=== PATIENT | male | born 1965 | race Two or more races ===

== ENCOUNTER 2023-02-12 20:25 | Emergency (ER) | payer SELFPAY ==
[2023-02-12 20:33] VITALS: TEMP 97.9; BMI 28.1
[2023-02-12] MEDS ORDERED: ASPIRIN 81 MG CHEWABLE TABLETS PO ONE (20:57)
[2023-02-12] MEDS ORDERED: ASPIRIN 81 MG CHEWABLE TABLETS ONE (21:05)
[2023-02-12 21:41] LABS: INR 1.07 (0.83-1.09); PROTHROMBIN TIME (PATIENT) 12.4 SEC (9.7-13.0)
[2023-02-12 21:43] LABS: ACTIVATED PTT 27.5 SECONDS (25.2-36.5)
[2023-02-12 21:50] LABS: POTASSIUM 3.9 mmol/L (3.5-5.1)
[2023-02-12 21:52] LABS: CALCIUM 8.7 mg/dL (8.5-10.1)
[2023-02-12 21:53] LABS: ALBUMIN 3.4 g/dl (3.4-5.0); BLOOD UREA NITROGEN 13.3 mg/dL (7-18); MAGNESIUM 2.1 mg/dL (1.8-2.4)
[2023-02-12 21:56] LABS: CREATININE 0.9 mg/dL (0.55-1.3); PHOSPHOROUS 2.6 mg/dL (2.5-4.9)
[2023-02-12 21:57] LABS: TOT PROT 6.1 g/dl (6.4-8.2)
[2023-02-12 21:58] LABS: BILIRUBIN,TOTAL 0.5 mg/dL (0.2-1)
[2023-02-12 22:01] LABS: BASO % 0.5 % (0-2.0); EOS % 3.4 % (0-4.5); LYMPH % 29.6 % (8-40); MCH 29.8 pg (25.7-33.7); MCHC 33.5 g/dl (32.0-35.9); MEAN CELL VOLUME 89.2 fl (80-96); MEAN PLT VOLUME 9.9 fl (7.5-11.1); MONO % 7.7 % (3.8-10.2); NEUT % 58.8 % (42.8-82.8); PLATELET COUNT 144 10^3/uL (134-434); RBC 4.03 M/mm3 (4.00-5.60); RDW 13.9 % (11.9-15.9); WHITE BLOOD COUNT 6.7 K/mm3 (4.0-10.0)
[2023-02-12] MEDS ORDERED: HEPARIN NA (PORCINE) 5,000 UNITS/ML 1ML VIAL IVPUSH ONE (22:15)
[2023-02-12] MEDS ORDERED: HEPARIN NA (PORCINE) 5,000 UNITS/ML 1ML VIAL IVPUSH PRN ×2 (22:17)
[2023-02-12] MEDS ORDERED: HEPARIN INFUSION - 25,000 UNITS/500 ML INFUS.BAG IVPB ONE (22:30)
[2023-02-12] MEDS ORDERED: HEPARIN NA (PORCINE) 5,000 UNITS/ML 1ML VIAL ONE (22:30)
[2023-02-12 23:14] VITALS: BP 126/79; PULSE 60; RESP 18
[2023-02-12] MEDS ORDERED: HEPARIN - 25,000 UNIT in SODIUM CHLORIDE 495 ML IV SCH (23:30)
== END 2023-02-13 00:42 | disposition short-term general hospital (02) ==
LOC: JER 20:25
PROC: 3E033NZ Introduction of Analgesics, Hypnotics, Sedatives into Peripheral Vein, Percutaneous Approach (ICD-10-PCS; principal; 2023-02-12)
DX: R07.9 Chest pain, unspecified (principal); I21.4 Non-ST elevation (NSTEMI) myocardial infarction; Z20.822 Contact with and (suspected) exposure to COVID-19
CPT/HCPCS: 0241U-QW; 36415; 71045-TC-FY; 80053; 82553; 83735; 84100; 84484; 85025; 85610; 85730; 93005; 93010; 99285-25; J1644